=== PATIENT | female | born 1965 | race Caucasian/White ===

== ENCOUNTER → 2022-06-24 10:49 | Outpatient (BNVA) | payer OTHER, SELFPAY | PROVIDERS: PCP Internal Medicine; Visit Provider Internal Medicine Rheumatology | DX: Z13.89 Encounter for screening for other disorder (principal) ==

== ENCOUNTER 2022-06-24 12:11 | Outpatient (REF) | payer OTHER, SELFPAY ==
--- NOTE | ~2022-06-24 | XR_ITS ---
EXAMINATION: XR HAND, RIGHT CLINICAL INFORMATION: Pain. COMPARISON: None TECHNIQUE: PA, lateral, and oblique views of the right hand. FINDINGS: Bony alignment and mineralization are normal. There is marked osteoarthritic change of the first carpometacarpal joint. No fracture or dislocation is seen. There is no abnormal bony erosive change. The proximal and distal carpal rows are intact. No focal soft tissue swelling, gas or foreign body is seen. XR/XR hand RT min 3V IMPRESSION: There is marked osteoarthritic change of the right first carpometacarpal joint. No fracture or dislocation is seen. There is no abnormal bone erosion. EXAMINATION: XR HAND, LEFT CLINICAL INFORMATION: Pain. COMPARISON: None TECHNIQUE: PA, lateral, and oblique views of the left hand. FINDINGS: Bony alignment and mineralization are normal. There is mild osteoarthritic change of the third distal interphalangeal joint and of the second and fifth proximal interphalangeal joints. Small subchondral cysts are seen of the heads of the first and third proximal phalanges. There is marked osteoarthritic change of the first carpometacarpal joint. No fracture or dislocation is seen. There is no abnormal bony erosive change. The proximal and distal carpal rows are intact. No focal soft tissue swelling, gas or foreign body is seen. 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 No fracture or dislocation is seen. There is no abnormal bone erosion.
--- NOTE | ~2022-06-24 | XR_ITS ---
EXAMINATION: XR SHOULDER, RIGHT CLINICAL INFORMATION: Pain. COMPARISON: None TECHNIQUE: AP external rotation, Grashey, scapular Y, and axillary views of the right shoulder. FINDINGS: The bones and soft tissues are normal. No fracture. Glenohumeral and acromioclavicular alignment is anatomic with normal joint space. No abnormal soft tissue calcifications. XR/XR shoulder RT min 2V IMPRESSION: Normal right shoulder.
--- NOTE | ~2022-06-24 | XR_ITS ---
EXAMINATION: XR HAND, RIGHT CLINICAL INFORMATION: Pain. COMPARISON: None TECHNIQUE: PA, lateral, and oblique views of the right hand. FINDINGS: Bony alignment and mineralization are normal. There is marked osteoarthritic change of the first carpometacarpal joint. No fracture or dislocation is seen. There is no abnormal bony erosive change. The proximal and distal carpal rows are intact. No focal soft tissue swelling, gas or foreign body is seen. XR/XR hand LT min 3V IMPRESSION: There is marked osteoarthritic change of the right first carpometacarpal joint. No fracture or dislocation is seen. There is no abnormal bone erosion. EXAMINATION: XR HAND, LEFT CLINICAL INFORMATION: Pain. COMPARISON: None TECHNIQUE: PA, lateral, and oblique views of the left hand. FINDINGS: Bony alignment and mineralization are normal. There is mild osteoarthritic change of the third distal interphalangeal joint and of the second and fifth proximal interphalangeal joints. Small subchondral cysts are seen of the heads of the first and third proximal phalanges. There is marked osteoarthritic change of the first carpometacarpal joint. No fracture or dislocation is seen. There is no abnormal bony erosive change. The proximal and distal carpal rows are intact. No focal soft tissue swelling, gas or foreign body is seen. 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 No fracture or dislocation is seen. There is no abnormal bone erosion.
[2022-06-24 13:36] LABS: MANUAL DIFF FLAG NO
[2022-06-24 13:41] LABS: Basophils Absolute Auto 0.1 X10*3/uL (0.0-0.2); Basophils Percent Auto 1.4 % (0-2); Eosinophils Absolute Auto 0.4 X10*3/uL (0.0-0.4); Hematocrit 40.4 % (37.0-47.0); Hemoglobin 12.9 g/dl (12.0-16.0); Imm Gran Abs Auto 0.01 X10*3/uL (0.00-0.03); Imm Gran Pct Auto 0.2 % (0.0-0.4); Lymphocytes Absolute Auto 1.1 X10*3/uL (1.2-4.9); Lymphocytes Percent Auto 23.4 % (20-40); Mean Corpuscular HGB Conc 31.9 g/dl (31.0-35.0); Mean Corpuscular Hemoglobin 29.4 pg (27.0-33.0); Mean Platelet Volume 10.4 fL (9.4-12.3); Monocytes Absolute Auto 0.5 X10*3/uL (0.1-1.2); Monocytes Percent Auto 10.5 % (2-11); Neutrophils Absolute Auto 2.7 x10*3/uL (2.0-8.3); Neutrophils Percent Auto 55.5 % (45-73); Platelet Count 249 X10*3/uL (160-400); Red Blood Count 4.39 X10*6/uL (4.20-5.50); Red Cell Distribution Width 13.4 % (11.0-16.0); White Blood Count 4.9 X10*3/uL (4.8-10.8)
[2022-06-24 13:56] LABS: Alanine Aminotransferase 22 U/L (0-31); Albumin Level 4.4 g/dL (3.5-5.0); Alkaline Phosphatase 89 U/L (39-117); Anion Gap 11 (12-20); Aspartate Amino Transferase 26 U/L (5-31); Bilirubin Total 0.5 mg/dL (0.0-1.0); Blood Urea Nitrogen 12 mg/dL (9-16); C Reactive Protein < 0.10 mg/dL (< or = 0.50); Calcium 9.7 mg/dL (8.4-10.2); Carbon Dioxide 29 mmol/L (22-29); Chloride 107 mmol/L (96-108); Estimated Glomerular Filt Rate 55; Glucose Random 88 mg/dL (60-115); Potassium 4.9 mmol/L (3.3-5.1); Sodium 142 mmol/L (135-145); Total Protein 7.2 g/dL (6.5-8.0)
[2022-06-24 14:21] LABS: Erythrocyte Sedimentation Rate 12 MM/HR (0-20)
[2022-06-24 14:39] LABS: Creatinine Urine 71.61 mg/dL; Total Protein Urine Random < 7 mg/dL (<12)
[2022-06-26 14:24] LABS: Anti DNA DS Antibody 16 IU/mL; SM/Ribonucleoprotein Ab >8.0 POS AI (<1.0 NEG); Smith Protein <1.0 NEG AI (<1.0 NEG)
[2022-06-26 18:23] LABS: Complement C3 137 mg/dL (83-193)
== END 2022-06-24 12:12 | disposition home or self-care (01) ==
LOC: HO.10HDL 12:11
PROVIDERS: PCP Internal Medicine; Visit Provider Internal Medicine Rheumatology
DX: M32.9 Systemic lupus erythematosus, unspecified (principal); M79.641 Pain in right hand; M79.642 Pain in left hand; M25.511 Pain in right shoulder
CPT/HCPCS: 36415; 73030; 73130; 80053; 84156; 85025; 85652; 86140; 86160; 86225; 86235